=== PATIENT | male | born 1960 | race Caucasian/White ===

== ENCOUNTER 2016-06-03 19:26 | Inpatient (IN) | payer OTHER ==
[2016-06-03] MEDS ORDERED: Promethazine/Cod 6.25mg-10mg/5ml Syr UD PO STA (19:59)
[2016-06-03] MEDS ORDERED: Albuterol-Ipratrop 3 mg / 0.5 (3 ml) UD INH STA ×3 (19:59→20:03)
[2016-06-03] MEDS ORDERED: Promethazine/Cod 6.25mg-10mg/5ml Syr UD ONE (20:22)
[2016-06-03] MEDS ORDERED: Albuterol-Ipratrop 3 mg / 0.5 (3 ml) UD ONE (20:23)
[2016-06-03 20:34] LABS: BASO # 0.1 K/uL (0.0-0.2); BASO % 0.8 % (0.0-2.0); EOS % 0.3 % (0.0-4.0); HEMATOCRIT 45.5 % (35.0-51.0); LYMPH # 2.4 K/uL (1.0-4.3); MEAN CELL VOLUME 90.8 fl (80.0-94.0); MEAN CORPUSCULAR HEMOGLOBIN 30.5 pg (27.0-31.0); MEAN CORPUSCULAR HGB CONC 33.6 g/dL (33.0-37.0); MEAN PLATELET VOLUME 7.8 fl (7.2-11.7); MONO # 1.3 K/uL (0.0-0.8); MONO % 8.8 % (0.0-10.0); NEUT # 11.2 K/uL (1.8-7.0); NEUT % 74.1 % (50.0-75.0); RED CELL DISTRIBUTION WIDTH 13.6 % (11.5-14.5); WHITE BLOOD COUNT 15.1 K/uL (4.8-10.8)
[2016-06-03 20:45] LABS: ALB/GLOB RATIO 1.1 (1.0-2.1); ALKALINE PHOSPHATASE 66 U/L (38-126); ALT/SGPT 34 U/L (21-72); AST/SGOT 21 U/L (17-59); BILIRUBIN,TOTAL 1.2 mg/dl (0.2-1.3); BLOOD UREA NITROGEN 15 mg/dl (9-20); CALCIUM 9.3 mg/dL (8.4-10.2); CARBON DIOXIDE 26 mmol/L (22-30); CHLORIDE 100 mmol/L (98-107); GFR AFRICAN-AMERICAN > 60; GLUCOSE,RANDOM 113 mg/dL (75-110); POTASSIUM 3.7 MMOL/L (3.6-5.0); SODIUM 141 mmol/l (132-148); TOTAL PROTEIN 7.3 G/DL (6.3-8.2)
--- NOTE | 2016-06-03 21:39 | ED PDOC ---
HPI: General Adult Time Seen by Provider: 06/03/16 19:46 Chief Complaint (Nursing): Flu-like Symptoms Chief Complaint (Provider): Fever History Per: Patient History/Exam Limitations: no limitations Onset/Duration Of Symptoms: Days (2x weeks) Have you had recent travel within the past 21 days to any of the following countries: [place], [place], [place] or [place]?: Yes Other Location:: [place] 3x weeks ago Current Symptoms Are (Timing): Still Present Severity: Moderate Additional Complaint(s): 55 year old male presents to the ED with complaints of a fever and a cough productive of yellow sputum that started 2x weeks ago. He reports that 3x weeks ago he went to [place] and came back 10x days ago with the symptoms of fever, chills, a cough productive of yellow sputum, and general body aches and weakness. He reports seeing his PMD after the initial onset of symptoms, where he was given Rx for prednizone, zpac, and promethazine, which he has finished with no relief. He denies having nausea, vomiting, and diarrhea. PMD: Andre Chopra MD Past Medical History Reviewed: Historical Data, Nursing Documentation, Vital Signs Vital Signs: Last Vital Signs Temp 98.1 F 06/04/16 01:00 Pulse 83 06/04/16 00:00 Resp 19 06/04/16 00:00 BP 123/74 06/04/16 00:00 Pulse Ox 96 06/04/16 04:54 - Medical History PMH: No Chronic Diseases Denies: Chronic Kidney Disease - Surgical History Surgical History: No Surg Hx - Family History Family History: States: No Known Family Hx - Social History Current smoker - smoking cessation education provided: Yes (1x packs per day) Alcohol: None Drugs: Denies - Allergies Allergies/Adverse Reactions: Allergies Allergy/AdvReac Type Severity Reaction Status Date / Time No Known Allergies Allergy Verified 06/03/16 19:37 Review of Systems ROS Statement: Except As Marked, All Systems Reviewed And Found Negative Constitutional: Positive for: Fever, Chills, Weakness (and body aches) Respiratory: Positive for: Cough, Sputum (yellow) Gastrointestinal: Negative for: Nausea, Vomiting, Abdominal Pain, Diarrhea Physical Exam - Reviewed Nursing Documentation Reviewed: Yes Vital Signs Reviewed: Yes - Physical Exam Appears: Positive for: Well, Non-toxic, Uncomfortable Head Exam: Positive for: ATRAUMATIC, NORMOCEPHALIC ENT: Positive for: Normal ENT Inspection Cardiovascular/Chest: Positive for: Regular Rate, Rhythm Respiratory: Positive for: Wheezing (at base bilaterally) Neurologic/Psych: Positive for: Alert, Oriented (3x) - Laboratory Results Result Diagrams: 06/03/16 20:20 06/03/16 20:20 - ECG O2 Sat by Pulse Oximetry: 96 (RA) Pulse Ox Interpretation: Normal Nebulizer Treatments/Peak Flow - Duonebs Number of Bronchodilator Doses given?: 3 - Pre/Post Peak Flow Pre Treatment Peak Flow: 3 Post treatment Peak Flow: 3 Medical Decision Making Medical Decision Makin:46 Initial impression: 55 year old male with a febrile illness sudden onset due to travel and smoking. Initial plan: * XRay chest 2 views * EKG * CMP * lactic acid, plasma * CBC * duoneb 3ml INH (3x times) * peak flow pre post treatment (3x times) * phenergan/codeine oral syrup 10ml PO * blood culture * influenza AB * reevaluation 22:00 Labs are reviewed, show mild leuokocytosis. XRay showed bibasular increased markings. Diagnosis of pneumonia is discussed with patient. Patient will be admitted to observation under Dr. Marquez (resident for Dr. Chopra). Patient is given Rx for rocephin and zithromax. Scribe Attestation: Documented by Viviane Whitmore, acting as a scribe for Gian Quiñones MD. Provider Scribe Attestation: All medical record entries made by the Scribe were at my direction and personally dictated by me. I have reviewed the chart and agree that the record accurately reflects my personal performance of the history, physical exam, medical decision making, and the department course for this patient. I have also personally directed, reviewed, and agree with the discharge instructions and disposition. Disposition - Clinical Impression Clinical Impression: Pneumonia - Patient ED Disposition Is Patient to be Admitted: Yes Counseled Patient/Family Regarding: Studies Performed, Diagnosis - Disposition Disposition Time: 21:45 Condition: STABLE - Pt Status Changed To: Hospital Disposition Of: Observation - POA Present On Arrival: None
[2016-06-03] MEDS ORDERED: Azithromycin 500 MG in Sodium Chloride 0.9% 250 ML IVPB STA (21:49)
[2016-06-03] MEDS ORDERED: cefTRIAXone (Rocephin) 1 gm Inj ONE (21:57)
[2016-06-03] MEDS ORDERED: Albuterol-Ipratrop 3 mg / 0.5 (3 ml) UD INH PRN (22:31)
--- NOTE | 2016-06-03 22:31 | CP.PCM.HP ---
History of Present Illness - History of Present Illness History of Present Illness: Pt is 55 year old male with no significant medical problems presented to the ED with complaints of a fever and a productive cough productive of yellow sputum that started 2x weeks ago. He reports that 3x weeks ago he went to [place] and came back 10x days ago with the symptoms of fever, chills, productive cough and general body aches and weakness. He states he saw his PMD after the initial onset of symptoms, where he was given Rx for prednizone, zpac , and promethazine, which he has finished with no relief. He denies having nausea, vomiting, and diarrhea. States his symptoms today is not as severe as it was when he first got sick 2weeks ago. He did not go back to see his PMD, came to ED instead. PMD: Andre Chopra MD Present on Admission - Present on Admission Any Indicators Present on Admission: No Review of Systems - Review of Systems All systems: reviewed and no additional remarkable complaints except Review of Systems: Per HPI Past Patient History - Past Social History Alcohol: None Drugs: Denies - CARDIAC Hx Cardiac Disorders: No - PULMONARY Hx Respiratory Disorders: No - NEUROLOGICAL Hx Neurological Disorder: No - HEENT Hx HEENT Problems: No - RENAL Hx Chronic Kidney Disease: No - ENDOCRINE/METABOLIC Hx Endocrine Disorders: No - HEMATOLOGICAL/ONCOLOGICAL Hx Blood Disorders: No - INTEGUMENTARY Hx Dermatological Problems: No - MUSCULOSKELETAL/RHEUMATOLOGICAL Hx Musculoskeletal Disorders: No - GASTROINTESTINAL Hx Gastrointestinal Disorders: No - GENITOURINARY/GYNECOLOGICAL Hx Genitourinary Disorders: No - PSYCHIATRIC Hx Psychophysiologic Disorder: No Hx Substance Use: No - SURGICAL HISTORY Hx Surgeries: No Meds Allergies/Adverse Reactions: Allergies Allergy/AdvReac Type Severity Reaction Status Date / Time No Known Allergies Allergy Verified 06/03/16 19:37 Physical Exam - Constitutional Appears: Non-toxic, No Acute Distress - Head Exam Head Exam: NORMOCEPHALIC - Eye Exam Eye Exam: Normal appearance - ENT Exam ENT Exam: Mucous Membranes Moist - Respiratory Exam Respiratory Exam: Rales, NORMAL BREATHING PATTERN - Cardiovascular Exam Cardiovascular Exam: REGULAR RHYTHM, +S1, +S2 - GI/Abdominal Exam GI & Abdominal Exam: Normal Bowel Sounds, Soft. absent: Tenderness - Extremities Exam Extremities exam: Negative for: calf tenderness, pedal edema - Neurological Exam Neurological exam: Alert, CN II-XII Intact, Oriented x3 - Skin Skin Exam: Normal Color Results - Vital Signs Recent Vital Signs: Last Vital Signs Temp 99.8 F H 06/03/16 19:34 Pulse 97 H 06/03/16 19:34 Resp 19 06/03/16 19:34 BP 153/78 H 06/03/16 19:34 Pulse Ox 96 06/03/16 22:16 - Labs Result Diagrams: 06/03/16 20:20 06/03/16 20:20 Assessment & Plan - Assessment and Plan (Free Text) Assessment: 55 y/o male smoker no sigificant medical history being admitted for clinical pneumonia Plan: 1. Pneumonia- Clinical diagnosis Chest xray f/u official reading influenza negative started on Ceftriaxone and Azithromycin No fever recorded, monitor vitals cough syrup and nebs ordered prn AM cbc ordered, f/u diet- heart healthy DVT prophylaxis- Lovenox SC 40mg daily
[2016-06-03] MEDS ORDERED: Promethazine/Cod 6.25mg-10mg/5ml Syr UD PO PRN (22:32)
[2016-06-04] MEDS ORDERED: Azithromycin 500 MG in Sodium Chloride 0.9% 250 ML IVPB SCH (09:00)
[2016-06-04 09:41] LABS: HEMATOCRIT 45.2 % (35.0-51.0); MEAN CELL VOLUME 91.1 fl (80.0-94.0); MEAN CORPUSCULAR HEMOGLOBIN 30.7 pg (27.0-31.0); MEAN CORPUSCULAR HGB CONC 33.8 g/dL (33.0-37.0); WHITE BLOOD COUNT 13.8 K/uL (4.8-10.8)
[2016-06-04] MEDS: Enoxaparin 40 mg Syringe SC SCH (10:38)
--- NOTE | 2016-06-04 12:13 | RAD ---
HISTORY: cough COMPARISON: No prior. TECHNIQUE: Chest PA and lateral FINDINGS: LUNGS: No active pulmonary disease. PLEURA: No significant pleural effusion identified. No pneumothorax apparent. CARDIOVASCULAR: Normal. OSSEOUS STRUCTURES: No significant abnormalities. VISUALIZED UPPER ABDOMEN: Normal. OTHER FINDINGS: None. IMPRESSION: No active disease.
--- NOTE | 2016-06-04 13:11 | CP.PCM.PN ---
Subjective - Date & Time of Evaluation Date of Evaluation: 06/04/16 Time of Evaluation: 07:35 - Subjective Subjective: Pt seen lying in bed this morning. C/o persistent productive cough with yellow sputum. Denies associated CP or SOB. Does c/o chills, but denies fever. Denies difficulty sleeping. Good appetite. C/o malaise. Objective - Vital Signs/Intake and Output Vital Signs (last 24 hours): Temp Pulse Resp BP Pulse Ox 97.4 F L 76 20 148/91 H 98 06/04/16 07:57 06/04/16 07:57 06/04/16 07:57 06/04/16 07:57 06/04/16 07:57 - Medications Medications: Current Medications Acetaminophen (Tylenol 325mg Tab) 650 mg PO Q6 PRN PRN Reason: Fever >100.4 F Albuterol/Ipratropium (Duoneb 3 Mg/0.5 Mg (3 Ml) Ud) 3 ml INH RQ6 PRN PRN Reason: Shortness of Breath Enoxaparin Sodium (Lovenox) 40 mg SC DAILY LILIAN PRN Reason: Protocol Last Admin: 06/04/16 10:38 Dose: 40 mg Ceftriaxone Sodium 1 gm/ (Sodium Chloride) 100 mls @ 100 mls/hr IVPB DAILY [facility] Last Admin: 06/04/16 10:37 Dose: 100 mls/hr Azithromycin 500 mg/ Sodium (Chloride) 250 mls @ 250 mls/hr IVPB DAILY [facility] Last Admin: 06/04/16 10:37 Dose: 250 mls/hr Promethazine HCl/Codeine (Phenergan/Codeine Oral Syrup) 10 ml PO Q6 PRN PRN Reason: Cough - Constitutional Appears: Non-toxic, No Acute Distress - Eye Exam Eye Exam: Normal appearance - ENT Exam ENT Exam: Mucous Membranes Moist - Respiratory Exam Respiratory Exam: Rhonchi, Wheezes, NORMAL BREATHING PATTERN. absent: Accessory Muscle Use, Chest Wall Tenderness, Respiratory Distress - Cardiovascular Exam Cardiovascular Exam: REGULAR RHYTHM, RRR - GI/Abdominal Exam GI & Abdominal Exam: Soft, Normal Bowel Sounds. absent: Tenderness - Extremities Exam Extremities Exam: absent: Calf Tenderness, Pedal Edema - Neurological Exam Neurological Exam: Alert, Awake, Oriented x3 - Skin Skin Exam: Dry, Intact, Normal Color, Warm Assessment and Plan - Assessment and Plan (Free Text) Assessment: 1. Productive cough - 2/2 URI vs pneumonia vs possible COPD component (pt is smoker) - Chest xray no active disease - afebrile - mild leukocytosis, trending down - influenza negative - received Ceftriaxone and Azithromycin x 2 doses - stop current abx, since pt received Zpack within past 2 weeks - start levaquin IV - IV steroids 80mg Q12 - duonebs q6 scheduled 2. Tobacco dependence - Nicotine patch daily 3. DVT prophylaxis - Lovenox SC 40mg daily
[2016-06-04] MEDS: Lactobacillus Acidophilus 500 MU Cap PO SCH (16:47)
[2016-06-04] MEDS: methylPREDNISolone 80 MG in Sodium Chloride 0.9% 50 ML IV SCH (17:59)
[2016-06-04] MEDS: Albuterol-Ipratrop 3 mg / 0.5 (3 ml) UD INH SCH (20:05)
--- NOTE | 2016-06-04 20:53 | CARD ---
APPROVED REPORT EKG Measurement Heart [id number] <Conclusion> Normal sinus rhythm Normal ECG
[2016-06-05] MEDS: Albuterol-Ipratrop 3 mg / 0.5 (3 ml) UD INH SCH ×2 (01:00→08:11)
[2016-06-05] MEDS: methylPREDNISolone 80 MG in Sodium Chloride 0.9% 50 ML IV SCH (08:16)
[2016-06-05] MEDS: Lactobacillus Acidophilus 500 MU Cap PO SCH ×2 (08:17→08:22)
[2016-06-05] MEDS: Enoxaparin 40 mg Syringe SC SCH ×2 (08:17→08:23)
[2016-06-05 08:48] VITALS: BP 120/66; PULSE 66; RESP 20; TEMP 97.9; O2SAT 94
--- NOTE | 2016-06-05 09:47 | CP.PCM.DIS ---
<Chino Tobias - Last Filed: 06/05/16 13:11> Provider - Provider Date of Admission: 06/04/16 12:27 Attending physician: Andre Chopra MD Time Spent in preparation of Discharge (in minutes): 35 Diagnosis - Discharge Diagnosis (1) COPD exacerbation Status: Acute Priority: Low Comment: minor COPD exacerbation most likely secondary to pt's smoking history and recent infection. Hospital Course - Lab Results Lab Results: Most Recent Lab Values WBC 13.8 K/uL (4.8-10.8) H 06/04/16 09:05 RBC 4.96 Mil/uL (4.40-5.90) 06/04/16 09:05 Hgb 15.3 g/dL (12.0-18.0) 06/04/16 09:05 Hct 45.2 % (35.0-51.0) 06/04/16 09:05 MCV 91.1 fl (80.0-94.0) 06/04/16 09:05 MCH 30.7 pg (27.0-31.0) 06/04/16 09:05 MCHC 33.8 g/dL (33.0-37.0) 06/04/16 09:05 RDW 14.0 % (11.5-14.5) 06/04/16 09:05 Plt Count 165 K/uL (130-400) 06/04/16 09:05 MPV 7.8 fl (7.2-11.7) 06/03/16 20:20 Neut % (Auto) 74.1 % (50.0-75.0) 06/03/16 20:20 Lymph % (Auto) 16.0 % (20.0-40.0) L 06/03/16 20:20 [place] % (Auto) 8.8 % (0.0-10.0) 06/03/16 20:20 Eos % (Auto) 0.3 % (0.0-4.0) 06/03/16 20:20 Baso % (Auto) 0.8 % (0.0-2.0) 06/03/16 20:20 Neut # 11.2 K/uL (1.8-7.0) H 06/03/16 20:20 Lymph # 2.4 K/uL (1.0-4.3) 06/03/16 20:20 [place] # 1.3 K/uL (0.0-0.8) H 06/03/16 20:20 Eos # 0.0 K/uL (0.0-0.7) 06/03/16 20:20 Baso # 0.1 K/uL (0.0-0.2) 06/03/16 20:20 Sodium 141 mmol/l (132-148) 06/03/16 20:20 Potassium 3.7 MMOL/L (3.6-5.0) 06/03/16 20:20 Chloride 100 mmol/L (98-107) 06/03/16 20:20 Carbon Dioxide 26 mmol/L (22-30) 06/03/16 20:20 Anion Gap 19 (10-20) 06/03/16 20:20 BUN 15 mg/dl (9-20) 06/03/16 20:20 Creatinine 0.9 mg/dL (0.8-1.5) 06/03/16 20:20 Est GFR ( Amer) > 60 06/03/16 20:20 Est GFR (Non-Af Amer) > 60 06/03/16 20:20 Random Glucose 113 mg/dL (75-110) H 06/03/16 20:20 Lactic Acid 1.1 MMOL/L (0.7-2.1) 06/03/16 20:20 Calcium 9.3 mg/dL (8.4-10.2) 06/03/16 20:20 Total Bilirubin 1.2 mg/dl (0.2-1.3) 06/03/16 20:20 AST 21 U/L (17-59) 06/03/16 20:20 ALT 34 U/L (21-72) 06/03/16 20:20 Alkaline Phosphatase 66 U/L (38-126) 06/03/16 20:20 Total Protein 7.3 G/DL (6.3-8.2) 06/03/16 20:20 Albumin 3.7 g/dL (3.5-5.0) 06/03/16 20:20 Globulin 3.5 gm/dL (2.2-3.9) 06/03/16 20:20 Albumin/Globulin Ratio 1.1 (1.0-2.1) 06/03/16 20:20 Influenza Typ A,B (EIA) Negative for flu a/b (NEGATIVE) 06/03/16 20:20 - Hospital Course Hospital Course: 55 y/o chronic smoker was admitted for possible pneumonia. He was originally treated with a course of azithromycin and reports it didnt help. During his stay , chest xray was performed which showed no active disease. He also had a mild leukocytosis, a negative influenza test. He was started on ceftriaxone and azithromycin. Levoquin was later added. He also received IV steroids and duonebs q6. It was discovered that he was not suffering from pneumonia but a minor COPD exacerbation likely do to his past smoking history. He was then discontinued off the abx and continued on steroids and duonebs. After an uneventful hospital stay, the pt was discharged in stable condition with orders to follow up with Dr. Chopra later this week. Discharge Exam - Head Exam Head Exam: ATRAUMATIC, NORMOCEPHALIC - Respiratory Exam Respiratory Exam: Rhonchi, Wheezes, NORMAL BREATHING PATTERN. absent: Accessory Muscle Use, Decreased Breath Sounds, Rales, Respiratory Distress - Cardiovascular Exam Cardiovascular Exam: REGULAR RHYTHM, RRR, +S1, +S2. absent: JVD, Rubs, Systolic Murmur - GI/Abdominal Exam GI & Abdominal Exam: Normal Bowel Sounds, Unremarkable - Neurological Exam Neurological exam: Alert, CN II-XII Intact, Oriented x3 - Psychiatric Exam Psychiatric exam: Normal Affect, Normal Mood - Skin Skin Exam: Dry, Intact, Normal Color, Warm Discharge Plan - Discharge Medications Prescriptions: Albuterol Sulfate [Proair Hfa] 0.09 mg IH Q4H PRN #1 inh PRN Reason: Shortness Of Breath Budesonide/Formoterol Fumarate [Symbicort] 1 aer IH BID #1 aer - Follow Up Plan Condition: STABLE Disposition: HOME/ ROUTINE Instructions: Pneumonia (DC) Additional Instructions: Follow-up with Dr Chopra 06/12 9AM <Andre Chopra - Last Filed: 06/06/16 06:41> Provider - Provider Date of Admission: 06/04/16 12:27 Attending physician: Andre Chopra MD Hospital Course - Lab Results Lab Results: Most Recent Lab Values WBC 13.8 K/uL (4.8-10.8) H 06/04/16 09:05 RBC 4.96 Mil/uL (4.40-5.90) 06/04/16 09:05 Hgb 15.3 g/dL (12.0-18.0) 06/04/16 09:05 Hct 45.2 % (35.0-51.0) 06/04/16 09:05 MCV 91.1 fl (80.0-94.0) 06/04/16 09:05 MCH 30.7 pg (27.0-31.0) 06/04/16 09:05 MCHC 33.8 g/dL (33.0-37.0) 06/04/16 09:05 RDW 14.0 % (11.5-14.5) 06/04/16 09:05 Plt Count 165 K/uL (130-400) 06/04/16 09:05 MPV 7.8 fl (7.2-11.7) 06/03/16 20:20 Neut % (Auto) 74.1 % (50.0-75.0) 06/03/16 20:20 Lymph % (Auto) 16.0 % (20.0-40.0) L 06/03/16 20:20 [place] % (Auto) 8.8 % (0.0-10.0) 06/03/16 20:20 Eos % (Auto) 0.3 % (0.0-4.0) 06/03/16 20:20 Baso % (Auto) 0.8 % (0.0-2.0) 06/03/16 20:20 Neut # 11.2 K/uL (1.8-7.0) H 06/03/16 20:20 Lymph # 2.4 K/uL (1.0-4.3) 06/03/16 20:20 [place] # 1.3 K/uL (0.0-0.8) H 06/03/16 20:20 Eos # 0.0 K/uL (0.0-0.7) 06/03/16 20:20 Baso # 0.1 K/uL (0.0-0.2) 06/03/16 20:20 Sodium 141 mmol/l (132-148) 06/03/16 20:20 Potassium 3.7 MMOL/L (3.6-5.0) 06/03/16 20:20 Chloride 100 mmol/L (98-107) 06/03/16 20:20 Carbon Dioxide 26 mmol/L (22-30) 06/03/16 20:20 Anion Gap 19 (10-20) 06/03/16 20:20 BUN 15 mg/dl (9-20) 06/03/16 20:20 Creatinine 0.9 mg/dL (0.8-1.5) 06/03/16 20:20 Est GFR ( Amer) > 60 06/03/16 20:20 Est GFR (Non-Af Amer) > 60 06/03/16 20:20 Random Glucose 113 mg/dL (75-110) H 06/03/16 20:20 Lactic Acid 1.1 MMOL/L (0.7-2.1) 06/03/16 20:20 Calcium 9.3 mg/dL (8.4-10.2) 06/03/16 20:20 Total Bilirubin 1.2 mg/dl (0.2-1.3) 06/03/16 20:20 AST 21 U/L (17-59) 06/03/16 20:20 ALT 34 U/L (21-72) 06/03/16 20:20 Alkaline Phosphatase 66 U/L (38-126) 06/03/16 20:20 Total Protein 7.3 G/DL (6.3-8.2) 06/03/16 20:20 Albumin 3.7 g/dL (3.5-5.0) 06/03/16 20:20 Globulin 3.5 gm/dL (2.2-3.9) 06/03/16 20:20 Albumin/Globulin Ratio 1.1 (1.0-2.1) 06/03/16 20:20 Influenza Typ A,B (EIA) Negative for flu a/b (NEGATIVE) 06/03/16 20:20 Attending/Attestation - Attestation I have personally seen and examined this patient.: Yes I have fully participated in the care of the patient.: Yes I have reviewed all pertinent clinical information, including history, physical exam and plan: Yes
== END 2016-06-05 11:06 | disposition home or self-care (01) | DRG 192 ==
LOC: H.ER 19:26 → H.ERHOLD 21:49 → H.MEDSURG1 23:13 → OBSVTOIN 06-04 12:27
PROVIDERS: ADMIT Family Medicine; ATTEND Family Medicine
DX: J44.1 Chronic obstructive pulmonary disease with (acute) exacerbation (principal); F17.210 Nicotine dependence, cigarettes, uncomplicated

== ENCOUNTER 2017-11-28 19:21 | Emergency (ER) | payer OTHER ==
[2017-11-28] MEDS ORDERED: Tdap Vaccine 0.5 ml Vial (10-64 yrs) IM ONE (19:43)
[2017-11-28] MEDS ORDERED: Lidocaine 2% Inj (20ml) INFIL STA (19:44)
[2017-11-28] MEDS ORDERED: Lidocaine PF 2% (5 ml) Inj (For Cardiac Arrhy) ONE (19:50)
[2017-11-28] MEDS ORDERED: Povidone Iodine Topical 10% Sol ONE (20:36)
--- NOTE | 2017-11-28 20:51 | ED PDOC ---
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 As per patient, 15 minutes prior to arrival, he was using a heat sealer and was accidentally cut by a protruding sharp object on his left second digit. Otherwise, denies numbness and tingling. Tetanus not up to date. PMD: Andre Chopra <Alexey Preciado E - Last Filed: 11/30/17 11:52> <Margo Tidwell - Last Filed: 11/30/17 19:30> Time Seen by Provider: 11/28/17 19:37 Chief Complaint (Nursing): Finger,Hand,&Wrist Supervising Attending Note - Attestation: I have personally seen and examined this patient.: No I have reviewed all pertinent clinical information: Yes <Margo Tidwell F - Last Filed: 11/30/17 19:30> Past Medical History Reviewed: Historical Data, Nursing Documentation, Vital Signs Vital Signs: Last Vital Signs Temp 98.2 F 11/28/17 19:31 Pulse 87 11/28/17 19:31 Resp 16 11/28/17 19:31 BP 156/77 H 11/28/17 19:31 Pulse Ox 97 11/28/17 19:31 - Medical History PMH: No Chronic Diseases Denies: HIV, Chronic Kidney Disease - Family History Family History: States: Unknown Family Hx <Alexey Preciado E - Last Filed: 11/30/17 11:52> Vital Signs: Last Vital Signs Temp 98.6 F 11/28/17 21:45 Pulse 75 11/28/17 21:45 Resp 17 11/28/17 21:45 BP 139/87 11/28/17 21:45 Pulse Ox 97 11/30/17 11:54 <Margo Tidwell F - Last Filed: 11/30/17 19:30> - Home Medications Home Medications: Ambulatory Orders Medication Instructions Recorded Albuterol Sulfate [Proair Hfa] 0.09 mg IH Q4H PRN #1 inh 06/05/16 Budesonide/Formoterol Fumarate 1 aer IH BID #1 aer 06/05/16 [Symbicort] Cephalexin [cephalexin] 500 mg PO Q6 #28 cap 11/28/17 - Allergies Allergies/Adverse Reactions: Allergies Allergy/AdvReac Type Severity Reaction Status Date / Time No Known Allergies Allergy Verified 11/28/17 19:30 Review of Systems ROS Statement: Except As Marked, All Systems Reviewed And Found Negative Skin: Positive for: Other (laceration to left second digit) Neurological: Negative for: Numbness (or tingling) <Alexey Preciado Stephanie - Last Filed: 11/30/17 11:52> Physical Exam - Reviewed Nursing Documentation Reviewed: Yes Vital Signs Reviewed: Yes - Physical Exam Skin: Positive for: Normal Color Extremity: Positive for: Normal ROM (full ROM actively and passively of left second digit and bilateral UE), Other (1.5 cm jagged laceration on palmar surface of left second digit at pip, no active bleeding,) <Alexey Preciado Stephanie - Last Filed: 11/30/17 11:52> - ECG O2 Sat by Pulse Oximetry: 97 (RA) Pulse Ox Interpretation: Normal <Alexey Preciado Stephanie - Last Filed: 11/30/17 11:52> Medical Decision Making Medical Decision Making: Time: 1942 Initial Impression: laceration Initial Plan: --Tetanus booster --Lidocaine 3ml INFIL --Left hand XR 2039 Pt tolerated sutures well. See procedure note. Instructed on wound care and advised to return to his PMD or ED in 10-14 days for removal, or sooner if complications occur. Additionally, pt given script for abx. Scribe Attestation: Documented by Deborah Deluca, acting as a scribe for Alexey Preciado PA-C Provider Scribe Attestation: All medical record entries made by the Scribe were at my direction and personally dictated by me. I have reviewed the chart and agree that the record accurately reflects my personal performance of the history, physical exam, medical decision making, and the department course for this patient. I have also personally directed, reviewed, and agree with the discharge instructions and disposition. <Alexey Preciado - Last Filed: 11/30/17 11:52> Procedures - Time-Out Type of Procedure: Laceration repair Site of Procedure: L 2nd digit Correct Patient: Yes Correct Procedure: Yes Correct Site Marked: Yes X-Ray Marked: Yes PA/Tech: Ozzy - Laceration/Wound Repair Laceration repair Wound Length (cm): 1.5 Wound's Depth, Shape: superficial, irregular Wound Explored: clean Irrigated w/ Saline (ccs): 250 Betadine Prep?: Yes Anesthesia: 1% Lidocaine Volume Anesthetic (ccs): 3 Wound Repaired With: Sutures Suture Size/Type: 5:0, proline Number of Sutures: 10 Wound Complexity: Simple Sterile Dressing Applied?: Yes Splint Applied?: Yes <Alexey Preciado - Last Filed: 11/30/17 11:52> Disposition - Patient ED Disposition Is Patient to be Admitted: No - Disposition Disposition: Routine/Home Disposition Time: 21:23 <Alexey Preciado - Last Filed: 11/30/17 11:52> <Margo Tidwell - Last Filed: 11/30/17 19:30> - Clinical Impression Clinical Impression: Finger laceration - Disposition Referrals: [facility] [Outside] Condition: IMPROVED Additional Instructions: SUTURE REMOVAL IN 10-14 DAYS [facility], thank you for letting us take care of you today. Your provider was Margo Tidwell MD and you were treated for LT FINGER LACERATION. The emergency medical care you received today was directed at your acute symptoms. If you were prescribed any medication, please fill it and take as directed. It may take several days for your symptoms to resolve. Return to the Emergency Department if your symptoms worsen, do not improve, or if you have any other problems. Please contact your doctor or call one of the physicians/clinics you have been referred to that are listed on the Patient Visit Information form that is included in your discharge packet. Bring any paperwork you were given at discharge with you along with any medications you are taking to your follow up visit. Our treatment cannot replace ongoing medical care by a primary care provider outside of the emergency department. Thank you for allowing the [facility] team to be part of your care today. If you had an X-Ray or CT scan: A Radiologist will review the ED reading if any change in treatment is needed we will contact you. If you had a blood, urine, or wound culture: It will take several days for the results, if any change in treatment is needed we will contact you. If you had an STI test: It will take 48 hours for the results. Please call after 1 week if you have not heard back. Prescriptions: Cephalexin [cephalexin] 500 mg PO Q6 #28 cap Instructions: Laceration Repair With Stitches (DC) Forms: [employer] ([place]) Print Language: NEPALESE
[2017-11-28 21:46] VITALS: BP 139/87; PULSE 75; RESP 17; TEMP 98.6
--- NOTE | 2017-11-29 12:28 | RAD ---
Date of service: 11/28/2017 PROCEDURE: Left Index finger radiographs. HISTORY: trauma attention left 2nd digit. COMPARISON: None. TECHNIQUE: AP radiograph of the left hand, as well as spot oblique and lateral images of index finger were obtained. FINDINGS: LEFT INDEX FINGER: Normal left index finger, without fracture or focal lesion. Remainder of the left hand (as seen on the AP view) grossly intact. JOINTS: Normal. SOFT TISSUES: Normal. OTHER FINDINGS: None. IMPRESSION: No acute findings related to/accounting for the clinical presentation.
[2017-11-30 11:54] VITALS: O2SAT 97
== END 2017-11-28 21:46 | disposition home or self-care (01) ==
LOC: H.ER 19:21
DX: S61.201A Unspecified open wound of left index finger without damage to nail, initial encounter (principal); W26.8XXA Contact with other sharp object(s), not elsewhere classified, initial encounter; Y92.9 Unspecified place or not applicable

== ENCOUNTER 2017-12-12 11:21 | Emergency (ER) | payer OTHER ==
[2017-12-12] MEDS ORDERED: Bacitracin 500 Units/gm Oint Foilpak UD ONE ×2 (12:52→12:56)
[2017-12-12 13:29] VITALS: BP 130/78; PULSE 76; RESP 18; TEMP 98; O2SAT 98
--- NOTE | 2017-12-14 16:59 | ED PDOC ---
HPI: Wound Care - HPI Time Seen by Provider: 12/12/17 11:52 Chief Complaint (Nursing): Suture/Staple Removal Additional Complaint(s): 59 y/o male with no significant PMH who presents to the ED for suture removal. Pt sustained a laceration his left 2nd digit which was repaired here on 11/28/17 with 10 simple interrupted sutures. Pt has kept original dressing and finger splint on since the time of repair. Denies redness, tenderness, wound drainage, fevers, chills, N/V. Past Medical History Reviewed: Historical Data, Nursing Documentation, Vital Signs Vital Signs: Last Vital Signs Temp 98 F 12/12/17 13:28 Pulse 76 12/12/17 13:28 Resp 18 12/12/17 13:28 BP 130/78 12/12/17 13:28 Pulse Ox 98 12/12/17 13:28 - Medical History PMH: Denies: HIV, Chronic Kidney Disease - Family History Family History: States: Unknown Family Hx - Home Medications Home Medications: Ambulatory Orders Medication Instructions Recorded Albuterol Sulfate [Proair Hfa] 0.09 mg IH Q4H PRN #1 inh 06/05/16 Budesonide/Formoterol Fumarate 1 aer IH BID #1 aer 06/05/16 [Symbicort] Cephalexin [cephalexin] 500 mg PO Q6 #28 cap 11/28/17 - Allergies Allergies/Adverse Reactions: Allergies Allergy/AdvReac Type Severity Reaction Status Date / Time No Known Allergies Allergy Verified 12/12/17 11:33 Review of Systems ROS Statement: Except As Marked, All Systems Reviewed And Found Negative Constitutional: Negative for: Fever, Chills Eyes: Negative for: Vision Change Cardiovascular: Negative for: Chest Pain Respiratory: Negative for: Shortness of Breath Gastrointestinal: Negative for: Nausea, Vomiting Skin: Negative for: Rash, Other (redness, tenderness, swelling, drainage of wound) Neurological: Negative for: Weakness, Numbness (paresthesias) Physical Exam - Reviewed Nursing Documentation Reviewed: Yes Vital Signs Reviewed: Yes - Physical Exam Appears: Positive for: Well, Non-toxic, No Acute Distress Head Exam: Positive for: ATRAUMATIC, NORMAL INSPECTION, NORMOCEPHALIC Skin: Positive for: Normal Color, Warm, Dry Eye Exam: Positive for: EOMI, Normal appearance, PERRL Cardiovascular/Chest: Positive for: Regular Rate, Rhythm Respiratory: Positive for: CNT, Normal Breath Sounds Pulses-Radial (L): 2+ Pulses-Radial (R): 2+ Extremity: Positive for: Normal ROM, Tenderness (over site of well-healing laceration; left 2nd digit), Capillary Refill (<2s), Other (well-healing laceration to left 2nd digit with 10 intact sutures; without redness, drainage, swelling). Negative for: Deformity Neurologic/Psych: Positive for: Alert, Oriented, Gait (steady). Negative for: Motor/Sensory Deficits - ECG O2 Sat by Pulse Oximetry: 98 Medical Decision Making Medical Decision Making: Initial Plan: --suture removal --wound cleaning 10 sutures removed from well-healing laceration without signs of infection. Pt tolerated procedure well without complication. Bacitracin and sterile dressing re-applied to help further heal wound. Impression: suture removal Plan: --wound care --f/u with PMD --return for new/worsening symptoms Disposition - Clinical Impression Clinical Impression: Removal of suture - Disposition Disposition: Routine/Home Disposition Time: 13:00 Condition: IMPROVED Additional Instructions: Keep area clean, dry, and covered until healed Followup with primary within 2 days Return to ED for worsening symptoms Forms: [employer] ([place]), [employer] ED School/Work Excuse
== END 2017-12-12 13:28 | disposition home or self-care (01) ==
LOC: H.ER 11:21
DX: Z48.02 Encounter for removal of sutures (principal)

== ENCOUNTER 2018-02-26 07:01 | Day surgery (SDC) | payer OTHER ==
[2018-02-21 13:02] VITALS: BMI 34.5
[2018-02-26] MEDS ORDERED: Lactated Ringer's 1,000 ML IV ONE ×2 (08:15→11:30)
[2018-02-26] MEDS ORDERED: ceFAZolin IV 1 gm in Dextrose 2 GM/100 ML BAG IVPB ONE (08:42)
[2018-02-26] MEDS ORDERED: Ropivacaine 0.5% 30ML IV ONE (09:28)
[2018-02-26] MEDS ORDERED: Propofol 10 mg/ml Inj (20 ML) ONE ×2 (09:33→12:17)
[2018-02-26] MEDS ORDERED: Midazolam 2 MG/2 ML VIAL ONE (09:33)
[2018-02-26] MEDS ORDERED: ePHEDrine 50 mg/ml Inj ONE (09:33)
[2018-02-26] MEDS ORDERED: Rocuronium 10 mg/ml (5 ml) ONE ×2 (09:33→10:53)
[2018-02-26] MEDS ORDERED: Succinylcholine 200 mg/10 ml Inj IV ONE (09:41)
[2018-02-26] MEDS ORDERED: Lidocaine 2% w Epi 1:100,000 Inj IJ ONE (10:03)
[2018-02-26] MEDS ORDERED: Lidocaine 2% w Epi 1:200,000 Pf Inj IJ ONE (10:15)
[2018-02-26] MEDS ORDERED: Neostigmine 1:1000 (1 mg/ml) Inj ONE (11:40)
[2018-02-26] MEDS ORDERED: Oxycodone/Acetaminophen 5/325 mg Tab PO PRN ×2 (12:15)
[2018-02-26] MEDS ORDERED: Sodium Chloride 0.9% 1,000 ML IV SCH (12:15)
--- NOTE | 2018-02-26 12:24 | PCM.SURG1 ---
Surgeon's Initial Post Op Note - Surgeon's Notes Surgeon: Jaden Rodriguez MD Leather Roller: Mario Reno PA-C Type of Anesthesia: General Endo Anesthesia Administered By: Armando Leggett MD Pre-Operative Diagnosis: Left knee quadriceps tendon tear, left knee medial/lateral meniscus tear Operative Findings: see complete operative report Post-Operative Diagnosis: as above Operation Performed: Left knee arthroscopic synovectomy, partial medial and lateral meniscectomy, quadriceps tendon repair Specimen/Specimens Removed: none Estimated Blood Loss: EBL {In ML}: 20 Blood Products Given: N/A Drains Used: No Drains Post-Op Condition: Good Date of Surgery/Procedure: 02/26/18 Time of Surgery/Procedure: 10:15
[2018-02-26] MEDS ORDERED: HYDROmorphone 0.5 mg/0.5 ml ISec IVP PRN (12:26)
--- NOTE | 2018-02-26 12:30 | PCM.ANESB2 ---
Popliteal Nerve Block - Popliteal Nerve Block Date of Procedure: 02/26/18 Procedure Performed: Popliteal Nerve Block Left - Procedure Popliteal Nerve Block: This procedure was explained to the patient that it is for post-operative pain management. Consent was obtained after a thorough discussion with the patient regarding the benefits and possible complications of local anesthetic block of the sciatic nerve at the popliteal level. The patient was brought to the operating room and standard monitors are applied. Time-out was held with the circulating nurse to confirm the correct surgery and the appropriate block. After applying oxygen by nasal cannula and administering IV Sedation, patient's operative leg was gently raised and supported and the groove in between the biceps femoris and vastus lateralis muscles was carefully palpated. The skin approximately 8cm above the popliteal crease was then marked. The ultrasound transducer was then applied to the posterior thigh approximately 8cm above the popliteal crease in the transverse plane and the sciatic nerve before its division was visualized lateral to the popliteal artery and in between the bicep femoris and semimembranosus/semitendinosus muscles. After identification, the lateral portion of the thigh was prepped with chloroprep soluation. At this point, a # 21 gauge Stimuplex insulated 4 inch needle was inserted into pre-marked area and advanced in a perpendicular direction. The needle was inserted above the ultrasound transducer in-plane towards the sciatic nerve in a [id number] direction. Needle advancement was performed carefully under direct ultrasound visualization. Nerve stimulator was used and dorsiflexion of the __left___ foot was elicited at a current of __0.4___ MA. After repeated negative aspiration, __5___cc of __0.5 Ropivacaine___ % was injected and this was flowed with ____15__ cc of ___0.5___% ___ropivacaine . Under ultrasound guidance the local anesthetics were observed surrounding sciatic nerve . The needle was removed intact and sterile dressing was applied. The patient tolerated the popliteal nerve block well with stable vital signs.
[2018-02-26 14:13] VITALS: RESP 18
[2018-02-26 15:53] VITALS: O2SAT 97
[2018-02-26] MEDS ORDERED: Oxycodone/Acetaminophen 5/325 mg Tab PO ONE (16:05)
[2018-02-26 17:58] VITALS: BP 146/75; PULSE 79; TEMP 98.9
--- NOTE | 2018-03-04 07:44 | OP ---
PROCEDURE DATE: 03/01/2018 SURGEON: Jaden Rodriguez MD NEUROPHYSIOLOGY TECH: ADRIAN Martin PREOPERATIVE DIAGNOSES: 1. Left knee quadriceps tendon tear. 2. Left knee medial meniscal tear. 3. Left knee lateral meniscal tear. 4. Left knee synovitis. POSTOPERATIVE DIAGNOSES: 1. Left knee quadriceps tendon tear. 2. Left knee medial meniscal tear. 3. Left knee lateral meniscal tear. 4. Left knee synovitis. ANESTHESIA: General. PROCEDURES: 1. Left knee open quadriceps tendon repair, 15243. 2. Arthroscopic medial and lateral partial meniscectomy, 31517. 3. Arthroscopic synovectomy of patellofemoral and medial and lateral compartment, 06268. BLOOD LOSS: Minimal. SPECIMENS: None. DRAINS: None. COMPLICATIONS: None. INDICATIONS: After failing a course of nonoperative therapy, the patient elected to undergo the above procedure. In the office, the risks and possible complications of knee arthroscopy were discussed in detail with the patient. These risks include but are not limited to continued pain, lack of motion, infection, vascular injury, DVT/PE, nerve injury including peroneal nerve dysfunction, reflex sympathetic dystrophy, compartment syndrome, unforeseen medical and/or anesthesia complications, limb loss, and even . The patient expressed an understanding of the risks and possible benefits of the procedure, and is also aware of the alternatives to surgery. An informed consent was obtained, and was checked immediately preop. DESCRIPTION OF PROCEDURE: The patient was correctly identified in the holding area and the left knee was marked with the surgeon's initials. The patient was transported to the operating room and placed in the supine position, general anesthesia was obtained, a preoperative orthopedic exam revealed weakness with left knee extension. The lower extremity was prepped and draped in the standard fashion, and the thigh was placed in an arthroscopic leg huntley. A well-padded tourniquet was applied to the patient's thigh. Time-out was completed confirming the correct operative site. Esmarch was used to exsanguinate the leg, and tourniquet was inflated to 300 mmHg. A standard anterolateral viewing portals were made with a #11 blade after subdermal 1% lidocaine with epinephrine injection. The knee was distended with normal saline and epinephrine in a 1:1,000,000 mixture, at an initial pressure of 35 mmHg. The arthroscope was inserted from the anterolateral portal and moved into the medial compartment. Next, the anteromedial working portal was made with spinal needle localization. The arthroscopic probe was inserted, and all compartments of the knee were sequentially visualized. FINDINGS: Arthroscopic examination of the knee revealed: 1. Posterior horn medial meniscal tear. 2. Posterior horn of lateral meniscus tear. 3. Synovitis of the patellofemoral and medial and lateral compartments. The anterior cruciate ligament and posterior cruciate ligaments were intact. Partial medial meniscectomy was performed with a combination of hand instruments and a 4.0 mm motorized shaver. The meniscus was debrided to a smooth, stable border with an excursion of less than 3 mm. Partial lateral meniscectomy was performed with a combination of hand instruments and a 4.0 mm motorized shaver. The meniscus was debrided to a smooth, stable border with an excursion of less than 5 mm. The motorized shaver was used to perform a synovectomy of the medial, lateral and patellofemoral compartments. The hypertrophic synovium was resected with minimal bleeding. No synovial incarceration was noted after synovectomy when the knee was put through a full passive range of motion. WASHOUT: The medial and lateral gutters were checked for loose bodies. At this point, the knee was then copiously irrigated utilizing the irrigant solution. Arthroscopic washout was performed with free flowing outflow through the cannula with the arthroscope removed. Portals were then closed with 4-0 nylon sutures. Work was then begun on repairing the quadriceps tendon. Anterior knee incision was outlined. Incision was made through skin only. All superficial veins were cauterized. The dissection was carried down to identify the quadriceps tendon. Quadriceps tendon was identified. There was extensive scar tissue and full-thickness tear with about 5 cm retraction of the quadriceps tendon. The proximal pole of the patella was then identified. All scar tissue was then removed. The proximal pole was cleaned out to good bleeding bone, rongeured and curetted out. Two 4.5 drill holes were then placed at the proximal pole of the patella for SwiveLock placement. A tap was used. Next, work was begun on securing the quadriceps tendon and muscle. Two FiberTape sutures were used in suturing the quadriceps tendon in Brunelli fashion suture technique with four free limbs extending from the edge of the quadriceps tendon. The leg was then held in an extension and the quadriceps tendon was brought closed to the proximal pole of the patella. Two of the free limbs were then passed into the SwiveLock anchor which was seated under tension into the lateral side of the proximal pole of the patella. Next, the other two free limbs of the FiberTape were seated into an another SwiveLock anchor and seated into the medial pole on the proximal side of the patella. There was no gap at the repair. The free limbs from the SwiveLock were then used to repair the tendon back to the patella followed by a FiberWire suture interrupted repair of the retinaculum and quadriceps tendon. Knee was taken through range of motion with flexion to about 30 degrees with no gapping at the repair site. The wound was then copiously irrigated. Closure was begun with 0 Vicryl for subcu layer followed by 2-0 Vicryl followed by wilner for the skin. The patient tolerated the procedure well. Tourniquet was deflated. Sterile dressing was applied with Xeroform, 4x4, Sergio, and Abel wrap. Knee immobilizer was placed on the leg. The patient will start weightbearing as tolerated in the knee immobilizer and will follow up with me in 2 weeks in my office. Jaden Rodriguez MD
== END 2018-02-26 18:00 | disposition home or self-care (01) ==
LOC: H.OPSURG 07:01
PROVIDERS: ATTEND Orthopaedic Surgery
DX: M65.862 Other synovitis and tenosynovitis, left lower leg (principal); X58.XXXA Exposure to other specified factors, initial encounter; F17.210 Nicotine dependence, cigarettes, uncomplicated; S83.282A Other tear of lateral meniscus, current injury, left knee, initial encounter; S83.242A Other tear of medial meniscus, current injury, left knee, initial encounter
CPT/HCPCS: 27385; 29876; 29880; 97116; 97161; 97165; C1713; G8978; G8979; G8980; G8987; G8988; J0171; J0330; J0690; J2001; J2250; J2405; J2704; J2710; J3010; J7030; J7120